=== PATIENT | male | born 1975 | race Caucasian/White ===

== ENCOUNTER 2023-11-13 06:36 | Day surgery (SDC) | payer BC ==
[2023-11-13] MEDS: Lactated Ringers 1,000 ML IV SCH (07:02)
[2023-11-13] MEDS ORDERED: DIPRIVAN 200 MG/20 ML IV ONE ×3 (09:10→09:29)
[2023-11-13] MEDS ORDERED: Versed 2 MG/2 ML Injection ONE (09:11)
--- NOTE | 2023-11-13 09:58 | OP ---
SURGERY DATE/TIME: 11/13/2023 0908 PREOPERATIVE DIAGNOSES: 1) Epigastric pain. He actually had a major disturbance just recently on a trip to the [facility] about a month ago. 2) Screening. POSTOPERATIVE DIAGNOSES: 1) Epigastric pain. He actually had a major disturbance just recently on a trip to the [facility] about a month ago. 2) Screening. PROCEDURES: 1) EGD with cold biopsy of antrum. 2) Colonoscopic examination with hot biopsy of colon polyp, examination to cecum. SURGEON: Jensen New M.D. ANESTHESIA: MAC. COMPLICATIONS: None. CONDITION: Stable. FINDINGS: 1) Grade 2 gastroesophageal reflux disease, antritis. 2) One small polyp in the mid sigmoid 3 mm. 3) Moderate internal hemorrhoids. INDICATION: As above. DESCRIPTION OF PROCEDURE: Patient taken to endoscopy. Left lateral decubitus position. Scope introduced. Pharyngoesophageal junction normal. Esophagus normal down to gastroesophageal junction. Rim of esophagitis grade 2. No hiatal hernia. Fundus, body was normal. In the antrum there is a little bit of antritis. [employer] cold biopsy. Pylorus normal. Duodenal bulb normal. Second portion normal. Scope withdrawn looped upon itself. No hiatal hernia. Anal digital examination satisfactory. Prostate satisfactory. Scope advanced to the cecum. Base of the cecum, ileocecal valve, appendiceal orifice normal. Ascending, hepatic, transverse, splenic, descending, sigmoid, in the sigmoid 3 mm polyp taken with hot biopsy to extinction. Rectum, anus moderate internal hemorrhoids. The patient tolerated the procedure satisfactory. Prep score was excellent. Withdrawal time was six minutes. Follow up exam in five years C-scope.
[2023-11-13 10:18] VITALS: RESP 16
[2023-11-13 10:29] VITALS: BP 136/89; PULSE 59; TEMP 96.7; O2SAT 98
== END 2023-11-13 10:38 | disposition home or self-care (01) ==
LOC: SDC 06:36
PROVIDERS: ATTEND Surgery
DX: Z12.11 Encounter for screening for malignant neoplasm of colon (principal); R10.13 Epigastric pain; K21.9 Gastro-esophageal reflux disease without esophagitis; K63.5 Polyp of colon; K64.8 Other hemorrhoids; K29.70 Gastritis, unspecified, without bleeding
CPT/HCPCS: J2250; J2704